=== PATIENT | male | born 1950 | race African-American/Black ===

== ENCOUNTER 2024-01-21 19:28 | Emergency (ER) | payer OTHER ==
[~2024-01-21] VITALS: Ht 185.4 cm; Wt 100.0 kg
[~2024-01-21 19:28] MED LIST: DONE23TA3 PO; LIP40 PO; MEMA10TA55 PO; SERT20OR6 PO
[2024-01-21 19:33] VITALS: O2SAT 99
[2024-01-21 20:56] LABS: BASOPHILS % 0.6 % (0.0-2.0); EOSINOPHILS % 1.5 % (0.0-5.0); HEMATOCRIT. 43.9 % (42.0-52.0); HEMOGLOBIN. 13.9 g/dL (14.0-18.0); MEAN CORPUSCULAR HEMOGLOBIN 30.2 pg (28.0-32.0); MEAN CORPUSCULAR HGB CONC 31.6 g/dL (31.0-37.0); MEAN CORPUSCULAR VOLUME 95.5 fL (80.0-94.0); MEAN PLATELET VOLUME 7.7 fl (7.4-10.4); MONOCYTES % 6.2 % (2.0-8.0); NEUTROPHILS % 81.7 % (40.0-76.0); PLATELET 329 x1000/uL (130-400); RED CELL DISTRIBUTION WIDTH 14.3 % (11.6-14.6); WHITE BLOOD COUNT 11.7 x1000/uL (4.5-11.0)
[2024-01-21 20:59] LABS: DIFFERENTIAL COMMENT 1
[2024-01-21 21:01] LABS: CHLORIDE 111 mEq/L (98-107); POTASSIUM 4.3 mEq/L (3.5-5.1); SODIUM 142 mEq/L (136-145)
[2024-01-21 21:02] LABS: CARBON DIOXIDE 24 mEq/L (21-32)
[2024-01-21 21:03] LABS: CALCIUM 9.9 mg/dL (8.7-10.4)
[2024-01-21 21:07] LABS: CREATININE 1.5 mg/dL (0.6-1.3); GLUCOSE 135 mg/dL (70-105); UREA NITROGEN BLOOD 20 mg/dL (9-23)
[2024-01-21 21:09] LABS: ALANINE AMINOTRANSFERASE 16 IU/L (10-49); ALBUMIN 4.3 g/dL (3.2-4.8); ASPARTATE AMINOTRANSFERASE 20 IU/L (<34)
[2024-01-21 21:10] LABS: BILIRUBIN TOTAL 0.6 mg/dL (0.1-1.0); PROTEIN TOTAL 7.5 g/dL (6.0-8.3)
[2024-01-22 00:06] VITALS: BP 145/81; PULSE 81; RESP 20
== END 2024-01-22 00:16 | disposition home or self-care (01) ==
LOC: ER 19:28 → EDBEDREQ 20:27 → ER 01-22 00:16
DX: R41.0 Disorientation, unspecified (principal); F03.90 Unspecified dementia, unspecified severity, without behavioral disturbance, psychotic disturbance, mood disturbance, and anxiety; E11.9 Type 2 diabetes mellitus without complications; I10 Essential (primary) hypertension; Z79.899 Other long term (current) drug therapy
CPT/HCPCS: 36415; 71045; 80053; 82962; 83605; 85025; 99284